=== PATIENT | female | born 1965 | race Caucasian/White ===

== ENCOUNTER 2020-05-23 09:24 | Outpatient (CLI) | payer BC, SELFPAY ==
[2020-05-23 12:53] LABS: Free T4 Free Thyroxine 5.34 ng/mL (0.78-2.19)
[2020-05-23 13:07] LABS: Thyroid Stimulating Hormone < 0.015 uIU/mL (0.465-4.680); Total Triiodothyronine (T3) 5.86 NG/ML (0.97-1.69)
[2020-05-23 13:49] LABS: Erythrocyte Sedimentation Rate 19 mm/hr (0-20)
[2020-05-26 04:22] LABS: Thyroglobulin Antibodies 1 IU/mL (<=1); Thyroid Peroxidase Antibodies 263 IU/mL (<9)
[2020-05-28 14:31] LABS: Thyrotropin Receptor Antibody 24.89 IU/L (<=2.00)
== END 2020-05-23 09:25 | disposition home or self-care (01) ==
LOC: ANHWCLAB 09:28
PROVIDERS: Visit Provider Internal Medicine Endocrinology, Diabetes & Metabolism
DX: E05.90 Thyrotoxicosis, unspecified without thyrotoxic crisis or storm (principal)
CPT/HCPCS: 36415; 83519; 84432; 84439; 84443; 84480; 85652; 86376; 86800